=== PATIENT | female | born 1985 | race American Indian/Alaskan Native ===

== ENCOUNTER 2019-03-24 14:15 | Emergency (ER) | payer OTHER ==
[2019-03-24 14:32] VITALS: BP 142/86
--- NOTE | 2019-03-24 14:32 | Emergency Department Report ---
Blank Doc - Documentation Documentation: 33 Y/o female c/o rash that itches for 1 week since leaving [place].
[2019-03-24] MEDS ORDERED: PEPCID PO ONE (14:55)
[2019-03-24] MEDS ORDERED: DECADRON IM ONE (14:55)
--- NOTE | 2019-03-24 14:58 | Emergency Department Report ---
ED Rash HPI - HPI Chief Complaint: Allergic Reaction Stated Complaint: POSS ALLERGIC REACTION Time Seen by Provider: 03/24/19 14:49 Duration: 1 Day Location: Other Suspected Cause: Unknown Rash Symptoms: Yes Itching, No Facial Swelling, No Tongue/Oral Swelling, No Breathing Difficulties, No Choking Sensation, No Wheezing/Dyspnea, No Peeling, No Blistering, No Fever, No Lightheaded, No Malaise, No Myalgias Severity: mild Other History: Patient is a pleasant 33-year-old female who comes to the ER with a rash that started yesterday. It is very itchy. She states that she was recently in [place] and she thinks she ate too much seafood. She has no fever. She is otherwise healthy and on no home medications. ABCs intact. There is no wheezing. ED Review of Systems ROS: Stated complaint: POSS ALLERGIC REACTION Other details as noted in HPI Comment: All other systems reviewed and negative ED Past Medical Hx - Past Medical History Previous Medical History?: No - Surgical History Past Surgical History?: No - Family History Family history: no significant - Social History Smoking Status: Current Every Day Smoker Substance Use Type: None - Medications Home Medications: Home Medications Medication Instructions Recorded Confirmed Last Taken Type Famotidine [Pepcid] 20 mg PO DAILY #5 tablet 03/24/19 Unknown Rx diphenhydrAMINE [Benadryl CAP] 25 mg PO Q8HR PRN #20 capsule 03/24/19 Unknown Rx predniSONE [Deltasone] 20 mg PO DAILY #5 tablet 03/24/19 Unknown Rx Rash Exam - Exam General: Vital signs noted. No distress. Alert and acting appropriately. HEENT: No Periorbital Edema, No Conjuctival Injection, No Chemosis, No Perioral Edema, No Tongue Edema, No Uvular Edema, No Compromised Airway, No Drooling Lungs: Yes Good Air Exchange, No Wheezes, No Ronchi, No Stridor, No Cough, No Labored Respirations, No Retractions, No Use of Accessory Muscles, No Other Abnormal Lung Sounds Heart: Yes Regular, No Murmur Skin: Yes Urticarial Rash, Yes Erythema, No Maculopapular Rash, No Morbilliform rash, No Bulla(e), No Excoriations, No Weeping, No Tenderness, No Edema, No Encrustations Other: Positive: Abdomen Normal, Neurologic Normal, Musculoskeletal Normal ED Course Vital Signs 03/24/19 14:30 Temperature 98.1 F Pulse Rate 112 H Respiratory 16 Rate Blood Pressure 142/86 O2 Sat by Pulse 100 Oximetry ED Medical Decision Making - Medical Decision Making Vital Signs 03/24/19 14:30 Temperature 98.1 F Pulse Rate 112 H Respiratory 16 Rate Blood Pressure 142/86 O2 Sat by Pulse 100 Oximetry MEDICATED WITH DECADRON AND PEPCID SHE HAS TAKEN BENADRYL AT HOME ABC INTACT NO WHEEZING NO SOB AMBULATORY TAKING PO DC HOME WITH DERM FOLLOW UP Critical care attestation.: If time is entered above; I have spent that time in minutes in the direct care of this critically ill patient, excluding procedure time. ED Disposition Clinical Impression: Rash Disposition: DC-01 TO HOME OR SELFCARE Is pt being admited?: No Does the pt Need Aspirin: No Condition: Stable Instructions: Acute Rash (ED) Additional Instructions: DIET TOLERATED MEDS ORDERED TODAY IN ER FOLLOW INSTRUCTIONS ON THE BOTTLE FOLLOW UP PCP WITHIN 48 HOURS TO ENSURE YOU ARE GETTING BETTER ACTIVITY TOLERATED MOTRIN OR TYLENOL FOR PAIN OR FEVER RETURN TO THE ER FOR WORSENING SYMPTOMS NOT RELIEVED BY YOUR MEDICATIONS. Prescriptions: diphenhydrAMINE [Benadryl CAP] 25 mg PO Q8HR PRN #20 capsule PRN Reason: Itching predniSONE [Deltasone] 20 mg PO DAILY #5 tablet Famotidine [Pepcid] 20 mg PO DAILY #5 tablet Referrals: RAMÓN OROZCO MD [Referring] - 3-5 Days Time of Disposition: 14:57
== END 2019-03-24 15:15 | disposition home or self-care (01) ==
LOC: ED 14:15
DX: R21 Rash and other nonspecific skin eruption (principal); F17.200 Nicotine dependence, unspecified, uncomplicated
CPT/HCPCS: 96372; 99282; J1100